=== PATIENT | female | born 1975 | race Caucasian/White ===

== ENCOUNTER 2018-05-14 08:29 | Emergency (ER) | payer BC, OTHER ==
[2018-05-14] MEDS: KETOROLAC 30 MG INJ IM (09:14)
[2018-05-14 09:27] LABS: ADD UMIC YES; UR ASCORBIC ACID NEGATIVE (NEGATIVE); UR BACTERIA MANY /HPF (NONE SEEN); UR BILIRUBIN (Dip) NEGATIVE (NEGATIVE); UR BLOOD (Dip) NEGATIVE (NEGATIVE); UR CLARITY SLIGHTLY CLOUDY (CLEAR); UR COLOR YELLOW (YELLOW); UR GLUCOSE (Dip) 3+ mg/dL (NEGATIVE); UR KETONES (Dip) NEGATIVE (NEGATIVE); UR LEUKOCYTE ESTERASE (Dip) 1+ Leu/ul (NEGATIVE); UR NITRITE (Dip) NEGATIVE (NEGATIVE); UR RBC 3 /HPF (0-5); UR SPECIFIC GRAVITY (Dip) 1.007 (1.003-1.030); UR SQUAMOUS EPITHELIAL CELL MODERATE /HPF (FEW); UR TOTAL PROTEIN (Dip) NEGATIVE (NEGATIVE); UR UROBILINOGEN (Dip) NEGATIVE (NEGATIVE); UR WBC 7 /HPF (0-5)
[2018-05-14] MEDS: morphine 4 MG/ML VIAL IM (10:47)
[2018-05-14] MEDS: ONDANSETRON (ODT) 4 MG TAB ODT (10:47)
== END 2018-05-14 11:45 | disposition home or self-care (01) ==
LOC: FTE 08:29
DX: M54.5 Low back pain (principal)
CPT/HCPCS: 72100; 81001; 81025; 96372; 99284-25